=== PATIENT | female | born 1980 ===

== ENCOUNTER 2022-04-05 15:23 | Emergency (ER) | payer OTHER, SELFPAY ==
[2022-04-05 15:48] VITALS: BP 141/83; PULSE 82; RESP 16; TEMP 37; O2SAT 100
--- NOTE | 2022-04-05 16:19 | ED.GENADULT ---
HPI - General Adult General Chief complaint: Skin/Abscess/Foreign Body Stated complaint: Rash/ Blisters on Body Source: patient Mode of arrival: ambulatory Limitations: no limitations History of Present Illness HPI narrative: Patient presents for evaluation of pruritic rash to the upper extremities. She states she noticed symptoms initially in the right upper extremity about a month ago. Approximately 1 week after symptom onset she is our primary provider who placed her on triamcinolone, as she had already tried hydrocortisone without considerable improvement. She has a connective tissue disorder and saw her plate shear operator, who advised she see Dermatology. She is compliant with all the medications were ordered by rheumatology. She states she is not developing new areas of pruritus and redness to bilateral upper extremities. no new lotions, soaps, detergents, topical products. No difficulty breathing or swallowing. She has tried using Zyrtec for her symptoms. She contacted a site controller who specializes in treating patients with autoimmune disease but they were unable to get her in for an appointment until this coming June. Related Data Home Medications Medication Instructions Recorded Confirmed bupropion HCl 150 mg tablet,12 hr 150 mg PO BID 04/05/22 04/05/22 sustained-release (Wellbutrin SR) cetirizine 10 mg capsule (Zyrtec) 10 mg PO DAILY 04/05/22 04/05/22 cholecalciferol (vitamin D3) 125 125 mcg PO DAILY 04/05/22 04/05/22 mcg (5,000 unit) tablet (Vitamin D3) duloxetine 60 mg capsule,delayed 60 mg PO DAILY 04/05/22 04/05/22 release (Cymbalta) hydroxychloroquine 200 mg tablet mg PO 04/05/22 (Plaquenil) leflunomide 20 mg tablet (Arava) mg 04/05/22 meloxicam 7.5 mg tablet mg 04/05/22 metformin 500 mg tablet mg 04/05/22 omeprazole 40 mg capsule,delayed 40 mg PO DAILY 04/05/22 04/05/22 release Allergies Allergy/AdvReac Type Severity Reaction Status Date / Time ibuprofen AdvReac Swelling Verified 04/05/22 15:43 Review of Systems Review of Systems: CONSTITUTIONAL: Denies fever, chills, or sweats. EYES: Denies visual changes, redness, or discharge. ENT: Denies rhinorrhea, congestion, sore throat, or otalgia. CARDIOVASCULAR: Denies chest pain, palpitations, or edema. RESPIRATORY: Denies cough or dyspnea. GASTROINTESTINAL: Denies abdominal pain, nausea, vomiting, or diarrhea. GENITOURINARY: Denies dysuria or hematuria. SKIN: Reports pruritic rash to bilateral upper extremities. MUSCULOSKELETAL: Denies back pain, joint pain, or myalgia. NEUROLOGIC: Denies headache, numbness, dizziness, or weakness. PSYCHIATRIC: Denies anxiety or depression. [facility] Past Medical History Medical History (Updated 04/05/22 @ 16:35 by Cliff Santos, VP [employer], ) Connective tissue disorder Surgical History Surgical History No pertinent past surgical history Family History Family History Grandparent Carcinoma of colon Diabetes mellitus Social History Social History Alcohol intake: never Substance use: never Living arrangements: with family Gender identity (if verbalized by the patient): Female Sexual Orientation (if Verbalized by the Patient): Straight or Heterosexual Spiritual care concerns: No Exam Narrative: GENERAL: Well-appearing, well-nourished, and in no acute distress. HEAD: Normocephalic, atraumatic. EYES: PERRLA and EOMI. ENT: Nares clear, no rhinorrhea or epistaxis. Mucous membranes moist. Oropharynx without tonsillar hypertrophy exudate or other lesions. Bilateral TMs pearly villar nonbulging NECK: Supple. No adenopathy or masses. No carotid bruits or JVD CHEST: Clear to auscultation. No respiratory distress. No wheezes rales or rhonchi HEART: Regular rate and rhythm. No murmur heard. Normal p
[2022-04-05] MEDS: methylPREDNISolone SOD SUCC 125 MG VIAL IM (16:46)
[2022-04-14 11:35] LABS: Anatomic Location NOT GIVEN; Specimen Type NOT GIVEN
== END 2022-04-05 17:00 | disposition home or self-care (01) ==
PROVIDERS: Emergency Provider Nurse Practitioner
DX: R21 Rash and other nonspecific skin eruption (principal); L94.9 Localized connective tissue disorder, unspecified
CPT/HCPCS: 87070; 87075; 87205; 87255; 87593; 96372; 99213; G0463; J2930